=== PATIENT | male | born 1980 | race American Indian/Alaskan Native ===

== ENCOUNTER 2020-09-07 10:44 | Emergency (ER) | payer SELFPAY ==
[2020-09-07 11:05] VITALS: BP 127/89
--- NOTE | 2020-09-07 11:14 | Emergency Department Report ---
ED Extremity Problem HPI - General Chief complaint: Extremity Injury, Lower Stated complaint: LEFT LEG PAIN Time Seen by Provider: 09/07/20 11:12 Source: patient Mode of arrival: Ambulatory Limitations: No Limitations - History of Present Illness Initial comments: 39 year old male presents to ED with c/o left leg pain. Patient states that his pain started 3 days ago. 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 He states he went back and forth multiple times. He states later after work he started having pain mainly around his left hip area. He states that he thought it was related to pulled muscle and was resting it and took otc aleve but he states he starting having tingling and numbness to left lower leg and feet and his feet felt cold and so he decided to come in to have checked. He states that the numbness and tingling is worse when he sits and sometimes improves when he stands and walks. He states that the pain in his hip is constant with no modifying factors. He states that he has chronic intermittent low back pain secondary to muscle strains and he states that he has had some increased low back pain since the hip pain started. He denies any swelling to his left lower leg. He denies any bruising, or erythema or leg weakness. He denies any bowel bladder incontinence urinary retention or constipation. 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 Complaint: extremity pain -: Gradual Location: left - Related Data Previous Rx's Medication Instructions Recorded Last Taken Type Ibuprofen [Motrin] 800 mg PO Q8HR PRN #30 tablet 09/07/20 Unknown Rx methOCARBAMOL [Robaxin TAB] 750 mg PO Q8H PRN #30 tablet 09/07/20 Unknown Rx Allergies Allergy/AdvReac Type Severity Reaction Status Date / Time No Known Allergies Allergy Unverified 09/07/20 10:56 ED Review of Systems ROS: Stated complaint: LEFT LEG PAIN Other details as noted in HPI Comment: All other systems reviewed and negative Constitutional: denies: chills, fever Eyes: denies: eye pain, eye discharge, vision change ENT: denies: ear pain, throat pain Respiratory: denies: cough, orthopnea, shortness of breath, SOB with exertion, SOB at rest, stridor, wheezing Cardiovascular: denies: chest pain, palpitations Musculoskeletal: back pain, arthralgia, myalgia, other (Left leg pain ) Skin: denies: rash, lesions Neurological: abnormal gait. denies: headache, weakness, numbness, paresthesias, confusion, vertigo Psychiatric: denies: anxiety, depression, auditory hallucinations, visual hallucinations, homicidal thoughts, suicidal thoughts Hematological/Lymphatic: denies: easy bleeding, easy bruising ED Past Medical Hx - Past Medical History Previous Medical History?: No - Surgical History Past Surgical History?: No - Social History Smoking Status: Current Every Day Smoker Substance Use Type: Alcohol, Marijuana - Medications Home Medications: Home Medications Medication Instructions Recorded Confirmed Last Taken Type Ibuprofen [Motrin] 800 mg PO Q8HR PRN #30 tablet 09/07/20 Unknown Rx methOCARBAMOL [Robaxin TAB] 750 mg PO Q8H PRN #30 tablet 09/07/20 Unknown Rx ED Physical Exam - General Limitations: No Limitations General appearance: alert, in no apparent distress - Head Head exam: Present: atraumatic, normal inspection - Eye Eye exam: Present: normal appearance, PERRL, EOMI Pupils: Present: normal accommodation - Neck Neck exam: Present: normal inspection, full ROM - Respiratory Respiratory exam: Absent: respiratory distress - Cardiovascular Cardiovascular Exam: Present: regular rate - GI/Abdominal GI/Abdominal exam: Present: soft. Absent: distended, tenderness, guarding - Expanded Lower Extremity Exam Left Hip exam: Present: normal inspection, full ROM (but with some pain ), tenderness (lateral left hip ). Absent: swelling, abrasion, laceration, ecchymosis, deformity, crepidus, dislocation, erythema, internal rotation, shortening, pelvic stability Upper Leg exam: Present: normal inspection. Absent: tenderness, swelling, abras ion, laceration, ecchymosis, deformity, crepidus, dislocation, erythema Knee exam: Present: normal inspection, full ROM. Absent: tenderness, swelling, abrasion, laceration, ecchymosis, deformity, crepidus, dislocation, erythema, effusion Lower Leg exam: Present: normal inspection, full ROM, tenderness (mild calf ttp ). Absent: swelling, abrasion, laceration, ecchymosis, deformity, crepidus, dislocation, erythema Ankle exam: Present: normal inspection, full ROM. Absent: tenderness Foot/Toe exam: Present: normal inspection, full ROM. Absent: tenderness, swelling Neuro vascular tendon exam: Present: no vascular compromise. Absent: pulse deficit, abnormal cap refill, motor deficit, sensory deficit Gait: Positive: observed and limited by pain (Mild limping gait secondary to pain ) - Back Exam Back exam: Present: normal inspection, full ROM, paraspinal tenderness (mild lumbar), vertebral tenderness (mild lumbar) - Neurological Exam Neurological exam: Present: alert, oriented X3, CN II-XII intact. Absent: motor sensory deficit - Psychiatric Psychiatric exam: Present: normal affect, normal mood - Skin Skin exam: Present: intact ED Course Vital Signs 09/07/20 10:59 Temperature 98.5 F Pulse Rate 74 Respiratory 18 Rate Blood Pressure 127/89 O2 Sat by Pulse 100 Oximetry ED Medical Decision Making - Radiology Data Radiology results: report reviewed Patient: QUINN RICKS MR#: [id number] : 1980 Acct:[id number] Age/Sex: 39 / M ADM Date: 09/07/20 Loc: ED Attending Dr: Ordering Physician: PETER HAYWARD Date of Service: 09/07/20 Procedure(s): XR spine lumbosacral 2-3V Accession Number(s): [id number] cc: PETER HAYWARD Fluoro Time In Minutes: LUMBAR SPINE 3 VIEWS INDICATION / CLINICAL INFORMATION: radiculopathy type symptoms left leg. COMPARISON: None available. FINDINGS: VERTEBRAE: No acute fracture. No significant malalignment. DISC SPACES / FACET JOINTS:There is very mild disc space height loss at T12-L1, L1-L2, and L4-5 PARASPINAL SOFT TISSUES:No significant abnormality. ADDITIONAL FINDINGS: None. LEFT HIP 3 VIEW(S) INDICATION / CLINICAL INFORMATION: radiculopathy type symptoms left leg COMPARISON: None available. FINDINGS: BONES / JOINT(S): No acute fracture or subluxation. No significant arthritis. SOFT TISSUES: No significant abnormality. ADDITIONAL FINDINGS: None. Signer Name: Gualberto Chairez MD Signed: 09/07/2020 12:05 PM Workstation Name: [id number] Transcribed By: SS Dictated By: GUALBERTO CHAIREZ Electronically Authenticated By: GUALBERTO CHAIREZ Signed Date/Time: 09/07/20 1205 DD/ 1203 TD/TT: Patient: QUINN RICKS MR#: [id number] : 1980 Acct:[id number] Age/Sex: 39 / M ADM Date: 09/07/20 Loc: ED Attending Dr: Ordering Physician: PETER HAYWARD Date of Service: 09/07/20 Procedure(s): XR hip 2-3V LT Accession Number(s): [id number] cc: PETER HAYWARD Fluoro Time In Minutes: LUMBAR SPINE 3 VIEWS INDICATION / CLINICAL INFORMATION: radiculopathy type symptoms left leg. COMPARISON: None available. FINDINGS: VERTEBRAE: No acute fracture. No significant malalignment. DISC SPACES / FACET JOINTS:There is very mild disc space height loss at T12-L1, L1-L2, and L4-5 PARASPINAL SOFT TISSUES:No significant abnormality. ADDITIONAL FINDINGS: None. LEFT HIP 3 VIEW(S) INDICATION / CLINICAL INFORMATION: radiculopathy type symptoms left leg COMPARISON: None available. FINDINGS: BONES / JOINT(S): No acute fracture or subluxation. No significant arthritis. SOFT TISSUES: No significant abnormality. ADDITIONAL FINDINGS: None. Signer Name: Gualberto Chairez MD Signed: 09/07/2020 12:05 PM Workstation Name: [id number] Transcribed By: SS Dictated By: GUALBERTO CHAIREZ Electronically Authenticated By: GUALBERTO CHAIREZ Signed Date/Time: 09/07/20 1205 DD/ 120 TD/TT: Patient: QUINN RICKS MR#: [id number] : 1980 Acct:[id number] Age/Sex: 39 / M ADM Date: 09/07/20 Loc: ED Attending Dr: Ordering Physician: PETER HAYWARD Date of Service: 09/07/20 Procedure(s): VL venous duplex LE LT Accession Number(s): [id number] cc: PETER HAYWARD DUPLEX DOPPLER LOWER EXTREMITY VEINS, LEFT INDICATION / CLINICAL INFORMATION: left leg pain. TECHNIQUE: Duplex doppler imaging was performed through the veins of the left lower extremity using venous compression and other maneuvers. COMPARISON: None available. FINDINGS: LEFT COMMON FEMORAL VEIN: Negative. LEFT FEMORAL VEIN: Negative. LEFT POPLITEAL VEIN: Negative. LEFT CALF VEINS: Negative. ADDITIONAL FINDINGS: None. IMPRESSION: 1. No sonographic evidence for DVT in the left lower extremity. Signer Name: Keshawn Zamorano MD Signed: 09/07/2020 1:48 PM Workstation Name: [id number] Transcribed By: TL Dictated By: Keshawn Zamorano MD Electronically Authenticated By: Keshawn Zamorano MD Signed Date/Time: 09/07/201347 DD/ 47 TD/TT: - Medical Decision Making X-ray of the hip shows nothing acute. X-ray of the lumbar spine shows mild degenerative changes but otherwise nothing acute. Venous Doppler negative for DVT. Patient currently resting comfortably, and is not in any acute distress. He is well-appearing and nontoxic. He has a mild limping gait secondary to his pain in his left hip/leg but otherwise he neurologically intact with no apparent deficits on exam. His history, PE and diagnostic testing does not suggest acute arterial occlusion, acauda equina or other form of acute cord compression syndrome, DVT, fracture/dislocation or cellulitis or sepsis or any other emergent conditions requiring additional work-up, emergent consult or admission at this time. Discussed suspected diagnosis and treatment plan with patient. Recommend follow-up with currency exchange specialist. Patient expressed understanding of instructions and agree with plan. Patient stable at time of discharge. Critical care attestation.: If time is entered above; I have spent that time in minutes in the direct care of this critically ill patient, excluding procedure time. ED Disposition Clinical Impression: Hip sprain, Left leg pain, Radicular pain of left lower extremity Disposition: - TO HOME OR SELFCARE Is pt being admited?: No Does the pt Need Aspirin: No Condition: Stable Instructions: Hip Sprain, Radicular Pain Additional Instructions: Take the motrin and muscle relaxers as prescribed. Follow up with Parking Lot Chauffeur in 1 week especially is symptoms continues. Return to ED if worse. Prescriptions: Ibuprofen [Motrin] 800 mg PO Q8HR PRN #30 tablet PRN Reason: pain methOCARBAMOL [Robaxin TAB] 750 mg PO Q8H PRN #30 tablet PRN Reason: pain Referrals: ASHLEE EDDY MD [Staff Physician] - 7-10 days (Primary care physician) MICA BEARD MD [Staff Physician] - 7-10 days (online banking specialist) Forms: Work/School Release Form(ED) Time of Disposition: 14:23
--- NOTE | 2020-09-07 12:09 | XRay Report ---
LUMBAR SPINE 3 VIEWS INDICATION / CLINICAL INFORMATION: radiculopathy type symptoms left leg. COMPARISON: None available. FINDINGS: VERTEBRAE: No acute fracture. No significant malalignment. DISC SPACES / FACET JOINTS:There is very mild disc space height loss at T12-L1, L1-L2, and L4-5 PARASPINAL SOFT TISSUES:No significant abnormality. ADDITIONAL FINDINGS: None. LEFT HIP 3 VIEW(S) INDICATION / CLINICAL INFORMATION: radiculopathy type symptoms left leg COMPARISON: None available. FINDINGS: BONES / JOINT(S): No acute fracture or subluxation. No significant arthritis. SOFT TISSUES: No significant abnormality. ADDITIONAL FINDINGS: None. Signer Name: Oren Chairez MD Signed: 09/07/2020 12:05 PM Workstation Name: [id number]
--- NOTE | 2020-09-07 13:53 | Vascular Lab Report ---
DUPLEX DOPPLER LOWER EXTREMITY VEINS, LEFT INDICATION / CLINICAL INFORMATION: left leg pain. TECHNIQUE: Duplex doppler imaging was performed through the veins of the left lower extremity using venous compr ession and other maneuvers. COMPARISON: None available. FINDINGS: LEFT COMMON FEMORAL VEIN: Negative. LEFT FEMORAL VEIN: Negative. LEFT POPLITEAL VEIN: Negative. LEFT CALF VEINS: Negative. ADDITIONAL FINDINGS: None. IMPRESSION: 1. No sonographic evidence for DVT in the left lower extremity. Signer Name: Keshawn Zamorano MD Signed: 09/07/2020 1:48 PM Workstation Name: [id number]
== END 2020-09-07 15:39 | disposition home or self-care (01) ==
LOC: ED 10:44
DX: S73.192A Other sprain of left hip, initial encounter (principal); M54.10 Radiculopathy, site unspecified; M79.605 Pain in left leg; M54.5 Low back pain; F17.200 Nicotine dependence, unspecified, uncomplicated; F12.90 Cannabis use, unspecified, uncomplicated; Z72.89 Other problems related to lifestyle; X58.XXXA Exposure to other specified factors, initial encounter; Y93.89 Activity, other specified; Y92.89 Other specified places as the place of occurrence of the external cause; Y99.8 Other external cause status
CPT/HCPCS: 72100; 99284